=== PATIENT | female | born 1975 | race Caucasian/White ===

== ENCOUNTER 2016-08-05 21:09 | Emergency (ER) | payer OTHER ==
[~2016-08-05] VITALS: Ht 162.6 cm; Wt 108.9 kg
[~2016-08-05 21:09] MED LIST: ALBUTEROL0.09 MG/A1 INH; AUGMENTIN 875 M1 TAB PO; AUGMENTIN 875-1 EACH PO; NASONEX17 GM NASB; PENICILLIN V P500 MG PO; PERCOCET MONOGRA5 MG PO; PHENOBARBITAL32.4 MG; PHENOBARBITAL32.4 MG PO; PHENOBARBITAL64.8 MG PO; PREDNISONE50 MG PO; PRILOSEC OTC20 MG PO; PROAIR HFA0.09 MG/Ac INH; ROBITUSSIN W/CO10 ML PO; TESSALON PERLE100 M1 PO; ZITHROMAX Z-PA250 M1 PO
[2016-08-05 21:22] VITALS: BP 120/81
[2016-08-05] MEDS ORDERED: PHENOBARBITAL64.8 M1 PO (21:42)
--- NOTE | 2016-08-05 21:43 | ED GENERAL ADULT ---
History of Present Illness General Chief Complaint: General Adult Stated Complaint: MED REFILL Source: patient, family, old records Exam Limitations: no limitations Vital Signs & Intake/Output Vital Signs & Intake/Output Vital Signs Date Time Temp Pulse Resp B/P Pulse O2 O2 Flow FiO2 Ox Delivery Rate 08/05 2121 97.8 90 20 120/81 96 Room Air ED Intake and Output 08/06 0000 08/05 1200 Intake Total Output Total Balance Patient 240 lb Weight Allergies Coded Allergies: ethinyl estradiol (From FEMCON FE) (Mild, RED BLOTS ALL OVER 08/05/16) ferrous fumarate (From FEMCON FE) (Mild, RED BLOTS ALL OVER 08/05/16) norethindrone (From FEMCON FE) (Mild, RED BLOTS ALL OVER 08/05/16) Reconcile Medications Albuterol Sulfate (Albuterol Sulfate Hfa) 0.09 MG/Actuation SONU 2 PUFF INH Q4- 6 PRN PRN SHORTNESS OF BREATH 90 MCG PER PUFF Mometasone Furoate (Nasonex) 50 MCG SPRAY.PUMP 2 SPRAY NASB DAILY PRN congestion Omeprazole (Prilosec Otc) 20 MG TCP 1 TAB PO QDAY GASTRITIS/REFLUX Phenobarbital (Unknown Strength) TABLET (Unknown Dose) UNKNOWN (Reported) Phenobarbital 64.8 MG TAB 1 TAB PO TID SEIZURES Phenobarbital 64.8 MG TABLET 1 TAB PO TID SEIZURE Phenobarbital 64.8 MG TAB 1 TAB PO TID SEIZURES Phenobarbital 64.8 MG TABLET 1 TAB PO TID SEIZURES Triage Note: TRIAGE: PT TO ER C/C REQUESTING REFILL OF PHENOBARBITOL. CALLED [facility] TODAY FOR SAME BUT THEY ADVISED THAT SHE NEEDED TO BE SEEN BEFORE THEY WOULD RENEW THE PRESCRIPTION. HAS APPT FOR TOMORROW AT 13:30. TAKES MED 3 X DAY BUT HAS NOT HAD A DOSE SINCE YESTERDAY AND COULD NOT WAIT UNTIL TOMORROWS APPT. Triage Nurses Notes Reviewed? yes : No Patient currently breastfeeds: No HPI: Patient ran out of her phenobarbital yesterday. Patient has some platelet to see her doctor tomorrow. Patient called her doctor but her doctor would not refill her medications until she saw her. Patient denies any recent seizure. Patient denies any suicidal or homicidal ideations. Patient has no other complaints. Past History Travel History Traveled to [place] past 21 day No Medical History Any Pertinent Medical History? 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 History of MRSA: No History of VRE: No History of CDIFF: No Surgical History Surgical History: cholecystectomy Psychosocial History Who do you live with Patient/Self What is your primary language Belgian Tobacco Use: Current Daily Use Daily Tobacco Use Amount/Type: => 5 Cigarettes daily ETOH Use: occasional use Illicit Drug Use: denies illicit drug use Family History Hx Contributory? No Review of Systems Review of Systems Constitutional: Reports: no symptoms. Respiratory: Reports: no symptoms. Cardiovascular: Reports: no symptoms. GI: Reports: no symptoms. Neurological/Psychological: Reports: no symptoms. Physical Exam Physical Exam General Appearance: well developed/nourished, alert, awake Head: atraumatic Eyes: Bilateral: PERRL, EOMI. Neck: supple Respiratory: normal breath sounds, chest non-tender, no respiratory distress, lungs clear Cardiovascular: regular rate/rhythm, normal peripheral pulses Neurologic/Psych: no motor/sensory deficits, awake, alert, oriented x 3, normal gait Core Measures ACS in differential dx? No CVA/TIA Diagnosis: No Severe Sepsis Present: No Septic Shock Present: No Progress Differential Diagnoses I considered the following diagnoses in my evaluation of the patient: [Med refill] Plan of Care: Refill meds Initial ED EKG: none Departure Departure Disposition: HOME OR SELF CARE Condition: Stable Clinical Impression Primary Impression: Medication refill Referrals: USAMA GRAVES (PCP/Family) Departure Forms: Customer Survey General Discharge Information Prescriptions: Current Visit Scripts Phenobarbital 1 TAB PO TID #12 Critical Care Note Critical Care Note Critical Care Time: non-applicable
== END 2016-08-05 21:46 ==
LOC: ERH 21:09
DX: Z76.0 Encounter for issue of repeat prescription (principal)
CPT/HCPCS: 99281

== ENCOUNTER 2016-11-05 00:52 | Emergency (ER) | payer OTHER ==
[~2016-11-05] VITALS: Ht 162.6 cm; Wt 111.1 kg
[~2016-11-05 00:52] MED LIST changes: +PHENOBARBITAL64.8 M1 PO
[2016-11-05 01:15] VITALS: BP 106/50
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
[2016-11-05] MEDS ORDERED: PHENOBARBITAL97.2 M1 PO (02:03)
== END 2016-11-05 02:12 ==
LOC: ERH 00:52
DX: G40.909 Epilepsy, unspecified, not intractable, without status epilepticus (principal)

== ENCOUNTER 2017-11-16 22:10 | Emergency (ER) | payer OTHER ==
[~2017-11-16] VITALS: Ht 160 cm; Wt 99.8 kg
[~2017-11-16 22:10] MED LIST changes: +AMOXICILLIN875 M1 PO; +BACTRIM DS TAB1 EACH PO; +BENZONATATE200 M1 PO; +PHENOBARBITAL97.2 M1 PO; +PREDNISONE50 M1 PO; +PROAIR HFA8.5 GM INH; +ZITHROMAX250 M2 PO
--- NOTE | 2017-11-16 22:43 | ED DYSPNEA/ASTHMA COMPLAINT ---
History of Present Illness General Chief Complaint: Dyspnea (COPD, CHF, Other) Stated Complaint: SOB,BACK & CHEST PAIN Source: patient Exam Limitations: no limitations Vital Signs & Intake/Output Vital Signs & Intake/Output Vital Signs Date Time Temp Pulse Resp B/P B/P Pulse O2 O2 Flow FiO2 Mean Ox Delivery Rate 11/17 0028 98 11/17 0024 97.3 74 20 131/76 97 Room Air 11/166 97 11/169 97 Room Air 11/17 2227 97.2 79 20 133/85 96 Room Air ED Intake and Output 11/17 0000 11/16 1200 Intake Total Output Total Balance Patient 220 lb Weight Weight Reported by Patient Measurement Method Allergies Coded Allergies: No Known Allergies (06/07/17) Reconcile Medications Albuterol Sulfate (Proair Hfa) 90 MCG HFA.AER.AD 2 PUF INH Q4-6 PRN PRN wheezing/cough Albuterol Sulfate (Proventil Hfa) 90 MCG HFA.AER.AD 2 PUF INH Q4 SOB Albuterol Sulfate (Albuterol Sulfate Hfa) 0.09 MG/Actuation SONU 2 PUFF INH Q4- 6 PRN PRN SHORTNESS OF BREATH 90 MCG PER PUFF Amoxicillin 875 MG TABLET 1 TAB PO BID INFECTION Azithromycin (Zithromax) 250 MG TABLET 1 DP PO AD bronchitis 2 the first day followed by 1 for days 2-5 Azithromycin (Zithromax) 250 MG TABLET 1 DP PO AD BRONCHITIS 2 the first day followed by 1 for days 2-5 Benzonatate 200 MG CAPSULE 1 CAP PO TIDPRN PRN cough Benzonatate 200 MG CAPSULE 1 CAP PO TIDPRN COUGH Mometasone Furoate (Nasonex) 50 MCG SPRAY.PUMP 2 SPRAY NASB DAILY PRN congestion Omeprazole (Prilosec Otc) 20 MG TCP 1 TAB PO QDAY GASTRITIS/REFLUX Phenobarbital (Unknown Strength) TABLET (Unknown Dose) UNKNOWN (Reported) Phenobarbital 64.8 MG TAB 1 TAB PO TID SEIZURES Phenobarbital 97.2 MG TABLET 1 TAB PO BID SEIZURES Phenobarbital 64.8 MG TABLET 1 TAB PO TID SEIZURE Phenobarbital 64.8 MG TAB 1 TAB PO TID SEIZURES Phenobarbital 64.8 MG TABLET 1 TAB PO TID SEIZURES Prednisone 50 MG TABLET 1 TAB PO DAILY bronchitis Prednisone (Deltasone) 20 MG TABLET 1 TAB PO TID BRONCHITIS Sulfamethoxazole/Trimethoprim (Bactrim Ds Tablet) 800 MG-160 MG TABLET 1 TAB PO BID ABSCESS Triage Note: PT TO ED C/O COUGH, CHEST PAIN AND BACK PAIN FOR A WEEK. STATES HAS HAD A PRODUCTIVE COUGH WITH GREEN PHLEGM FOR A WEEK. PAIN WORSE WITH INSPIRATION AND MOVEMENT. O2 SAT 96% ON RA. 1PPD SMOKER "I CAN'T EVEN SMOKE ONE TODAY THOUGH" WHEEZES ON AUSCULTATION. NAD BRONCHITIS, DENIES PMH OF ASTHMA. NAD Triage Nurses Notes Reviewed? yes Onset: Abrupt Duration: week(s): (1), constant Timing: recent history Severity: moderate : No Patient currently breastfeeds: No HPI: 42-year-old female comes into the emergency room with complaints of coughing and shortness of breath and wheezing. Symptoms going on for the past week. She smokes a pack of cigarettes a day. She denies any fever. Denies any vomiting. Denies any other associated symptoms. (Leland Rodriguez) Past History Travel History Traveled to [place] past 21 day No Medical History Any Pertinent Medical History? 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 History of MRSA: No History of VRE: No History of CDIFF: No Surgical History Surgical History: cholecystectomy Psychosocial History Who do you live with Patient/Self What is your primary language Kuwaiti Tobacco Use: Current Daily Use Daily Tobacco Use Amount/Type: => 5 Cigarettes daily ETOH Use: denies use Illicit Drug Use: denies illicit drug use Family History Hx Contributory? No (Leland Rodriguez) Review of Systems Review of Systems Constitutional: Reports: no symptoms. EENTM: Reports: no symptoms. Respiratory: Reports: see HPI. Cardiovascular: Reports: no symptoms. GI: Reports: no symptoms. Genitourinary: Reports: no symptoms. Musculoskeletal: Reports: no symptoms. Skin: Reports: no symptoms. Neurological/Psychological: Reports: no symptoms. Hematologic/Endocrine: Reports: no symptoms. Immunologic/Allergic: Reports: no symptoms. All Other Systems: Reviewed and Negative (Leland Rodriguez) Physical Exam Physical Exam General Appearance: well developed/nourished, alert, awake Head: atraumatic Eyes: Bilateral: normal appearance. Ears, Nose, Throat: normal ENT inspection, hearing grossly normal Neck: normal inspection Respiratory: decreased breath sounds, rhonchi, wheezing Cardiovascular: regular rate/rhythm Extremities: normal inspection Neurologic/Psych: awake, alert, oriented x 3 Skin: intact, normal color Core Measures ACS in differential dx? Yes CVA/TIA Diagnosis No Sepsis Present: No Sepsis Focused Exam Completed? No (Leland Rodriguez) Progress Differential Diagnosis: asthma, bronchitis, COPD, pneumonia Plan of Care: Orders Procedure Date/time Status EKG 11/16 2213 Active Diagnostic Imaging: Viewed by Me: Radiology Read. Discussed w/RAD: Radiology Read. Radiology Impression: PATIENT: NATTY CERVANTES PRESENT AGE: 42 PATIENT ACCOUNT NO: [id number] : 76 LOCATION: [facility] ORDERING PHYSICIAN: Leland DE LUNA SERVICE DATE: 11/16/17 EXAM TYPE: RAD - XRY-CHEST XRAY, TWO VIEWS EXAMINATION: XR CHEST CLINICAL INFORMATION: Shortness of breath. COMPARISON: Chest radiograph 01/19/2017. TECHNIQUE: 2 views of the chest were obtained. FINDINGS: Lungs are well-expanded. No focal consolidative disease, pleural effusion, or pneumothorax. The cardiac silhouette and upper mediastinal contours are normal. No acute osseous finding. IMPRESSION: Unremarkable chest radiograph. No consolidative disease or effusion. DICTATED BY : Arben Kumar MD DATE/TIME DICTATED:11/16/172315 ASSET PROTECTION LEAD: MARTHA DATE/TIME TRANSCRIBED:11/16/172315 CONFIDENTIAL, DO NOT COPY WITHOUT APPROPRIATE AUTHORIZATION. <Electronically signed in Other Vendor System> SIGNED BY: Arben Kumar MD 11/16/17 720 Initial ED EKG: normal sinus rhythm, rate (95) (Leland Rodriguez) Departure Departure Disposition: HOME OR SELF CARE Condition: Stable Clinical Impression Primary Impression: Bronchitis Referrals: Dorie Bonilla APRN (PCP/Family) Additional Instructions: Take prednisone, Z-Isael, albuterol, and Tessalon Perles as prescribed. Follow-up with primary care doctor. Return if any concerns worsening symptoms. Please go over all results of today's visit with your primary care doctor. Contact your primary care doctor to let them know you were here in the emergency room. There may be nonspecific findings which may not be related to your visit today here in the emergency room but may require further evaluation and chronic monitoring by your primary care doctor. If you had a laceration today the chance of foreign body always remains. You should follow-up with your primary care doctor for recheck in 3-5 days for a wound check. If you had an x-ray done there is a chance that a fracture could have been missed on initial read and you should follow-up with your primary care doctor for repeat x-rays if symptoms persist. If your blood pressure was elevated here in the emergency room please have rechecked by micaela primary care doctor within the next 48. If you were prescribed a narcotic here in the emergency room or any type of controlled substances you're not allowed to drive while taking this medication or operate any type of heavy machinery. Narcotics can make you feel lightheaded dizziness nausea and can cause constipation. You may need to pickle processor a stool softener. Thank you for choosing [facility] emergency room. Please return to the emergency room immediately if you have any other concerns worsening of symptoms. Departure Forms: Customer Survey General Discharge Information Prescriptions: Current Visit Scripts Prednisone (Deltasone) 1 TAB PO TID #12 TAB Albuterol Sulfate (Proventil Hfa) 2 PUF INH Q4 #1 INHAL Azithromycin (Zithromax) 1 DP PO AD #6 TAB 2 the first day followed by 1 for days 2-5 Benzonatate 1 CAP PO TIDPRN #30 CAP Comments 11/16/17 Patient's symptoms are most consistent with bronchitis. She has pain in her back and chest when she coughs only. She has associated wheezing on exam with productive cough. She is a smoker. Patient feels significantly better after nebulizer treatments. Do not feel blood work is Necessary at this time. No suspicion for AL or pulmonary embolism. Symptoms are consistent with a bronchitis presentation. EKG was done upfront initially when the patient had presented. Consider the diagnosis but at this time very low suspicion. No significant findings. (Leland Rodriguez) PA/VENEER JOINER Co-Sign Statement Statement: ED Attending supervision documentation- [] I saw and evaluated the patient. I have also reviewed all the pertinent lab results and diagnostic results. I agree with the findings and the plan of care as documented in the PA's/VENEER JOINER's documentation. [X] I have reviewed the ED Record and agree with the PA's/VENEER JOINER's documentation. [] Additions or exceptions (if any) to the PAs/VENEER JOINER's note and plan are summarized below: [] (Joelle JULIEN,Yinka Anand) Critical Care Note Critical Care Note Critical Care Time: non-applicable (Riki DE LUNA,Leland)
--- NOTE | 2017-11-16 23:20 | RADIOLOGY REPORT ---
EXAMINATION: XR CHEST CLINICAL INFORMATION: Shortness of breath. COMPARISON: Chest radiograph 01/19/2017. TECHNIQUE: 2 views of the chest were obtained. FINDINGS: Lungs are well-expanded. No focal consolidative disease, pleural effusion, or pneumothorax. The cardiac silhouette and upper mediastinal contours are normal. No acute osseous finding. IMPRESSION: Unremarkable chest radiograph. No consolidative disease or effusion.
[2017-11-16] MEDS ORDERED: PROVENTIL HFA6.7 GM INH (23:50)
[2017-11-16] MEDS ORDERED: ZITHROMAX250 M2 PO (23:50)
[2017-11-16] MEDS ORDERED: BENZONATATE200 M1 PO (23:50)
[2017-11-16] MEDS ORDERED: DELTASONE20 MG PO (23:50)
[2017-11-17 00:24] VITALS: BP 131/76
[2018-04-10] MEDS ORDERED: PREDNISONE10 M2 PO (16:48)
[2018-04-10] MEDS ORDERED: PROVENTIL HFA6.7 GM INH (16:48)
[2018-04-10] MEDS ORDERED: ZITHROMAX250 M2 PO (16:48)
== END 2017-11-17 00:30 ==
LOC: ERH 22:10
DX: J40 Bronchitis, not specified as acute or chronic (principal); F17.210 Nicotine dependence, cigarettes, uncomplicated
CPT/HCPCS: 1263; 71046; 93005; 93010